=== PATIENT | male | born 1975 | race Caucasian/White ===

== ENCOUNTER 2024-05-21 08:32 | Outpatient (CLI) | payer OTHER, SELFPAY | END 2024-05-21 08:33 | disposition home or self-care (01) | LOC: FRMREF 08:33 | PROVIDERS: Visit Provider Nurse Practitioner Family | DX: M10.9 Gout, unspecified (principal) | CPT/HCPCS: 84550 ==

== ENCOUNTER 2024-05-23 09:43 | Emergency (ER) | payer OTHER, SELFPAY ==
--- OUTSIDE RECORDS SUMMARY | 2024-05-23 09:44 | XMS_ITS | Clinical Summary ---
Author Organization [facility] Address [address] [place] [id number] Care Team Providers Care Concrete Mixing Plant Laborer Name Role Phone [facility], [facility] Primary Care Provider Allergies No known active allergies Medications predniSONE (DELTASONE) 20 MG tablet Take two tablets (= 40mg) each day for 5 (five) days 10 tablet 06/04/2020 Active oxyCODONE (ROXICODONE) 5 MG tablet Take 1 tablet (5 mg) by mouth every 6 hours as needed for pain 12 tablet 06/04/2020 Active Social History Tobacco Use Types Packs/Day Years Used Date Smoking Tobacco: Never Assessed Adolescent Education Answer Date Record ed Getting School Help Needed Not on file 01/21 Sex and Gender Information Value Date Recorded Sex Assigned at Not on file Legal Sex Male 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 Gender Identity Not on file Sexual Orientation Not on file Last Filed Vital Signs Vital Sign Reading Time Taken Comments Blood Pressure 155/103 06/04/2020 5:45 PM CHANGE MANAGEMENT FACILITATOR Pulse 81 06/04/2020 6:15 PM CHANGE MANAGEMENT FACILITATOR Temperature 37.4 C (99.4 F) 06/04/2020 4:00 PM CHANGE MANAGEMENT FACILITATOR Respiratory Rate 20 06/04/2020 4:00 PM CHANGE MANAGEMENT FACILITATOR Oxygen Saturation 99% 06/04/2020 6:30 PM CHANGE MANAGEMENT FACILITATOR Inhaled Oxygen Concentration - - Weight 79.4 kg (175 lb) 06/04/2020 4:00 PM CHANGE MANAGEMENT FACILITATOR Height 185.4 cm (6' 1) 06/04/2020 4:00 PM CHANGE MANAGEMENT FACILITATOR Body Mass Index 23.09 06/04/2020 4:00 PM CHANGE MANAGEMENT FACILITATOR Plan of Treatment Not on file Insurance [facility] Care Teams Concrete Mixing Plant Laborer Relationship Specialty Start Date End Date Clinic, [address] [phone] PCP - General 06/04/20
--- OUTSIDE RECORDS SUMMARY | 2024-05-23 09:44 | XMS_ITS | Clinical Summary ---
Author Organization [facility] Address [place], [place] [address] Care Team Providers Care Patent Chemist Name Role Phone Pcp, No Primary Care Provider Unavailabl e Allergies No known active allergies Medications No known medications Active Problems No known active problems Resolved Problems Problem Noted Date Diagnosed Date Resolved Date FOREIGN BODY IN CONJUNCTIVAL SAC-OS 09/26/2001 02/01/2024 EYE EXAMINAITION 04/19/1999 02/01/2024 Social History Tobacco Use Types Packs/Day Years Used Date Smoking Tobacco: Some Days Cigarettes 0.1 21.1 Started: 04/16/2003 Tobacco Cessation:Ready to Q uit: Not Asked; Counseling Given: Not Answered Comments:occasional tobacco use Sex and Gender Information Value Date Recorded Sex Assigned at Not on file 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 Gender Identity Not on file Sexual Orientation Not on file Obstetrics History Last Filed Vital Signs Vital Sign Reading Time Taken Comments Blood Pressure 122/86 02/01/2024 4:11 PM CDT Pulse 76 02/01/2024 4:11 PM CDT Temperature 36.9 C (98.4 F) 02/01/2024 4:11 PM CDT Respiratory Rate - - Oxygen Saturation 97% 02/01/2024 4:1 1 PM CDT Inhaled Oxygen Concentration - - Weight 86.1 kg (189 lb 14.4 oz) 02/01/2024 4:11 PM CDT Height 182.9 cm (6') 02/01/2024 4:11 PM CDT patient reported Body Mass Index 25.76 02/01/2024 4:11 PM CDT Plan of Treatment Health Maintenance Due Date Last Done Comments Tdap 1988 Depression screening for age 12+ 1989 HIV for age 15-65 1992 Hepatitis C screening for age 18-79 1995 Pneumococcal series for age 6-49 (1 of 2 - PCV) 1995 Tetanus booster 1997 Colonoscopy through age 75 2022 Lipids for age 45-75 2022 COVID-19 vaccine series (1 - 2023- season) Influenza for age 9-49 12/16/2023 BMI (ht and wt on same day) for age 18+ 01/31/2025 1 Insurance [facility] Care Teams Patent Chemist Relationship Specialty Start Date End Date Pcp, No . PCP - General 02/01/24
[2024-05-23 10:13] VITALS: BP 128/89; PULSE 78; RESP 20; TEMP 36.8; O2SAT 97; BMI 22.4
--- OUTSIDE RECORDS SUMMARY | 2024-05-23 10:36 | XMS_ITS | Clinical Summary ---
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 PCP - General 02/01/24
--- OUTSIDE RECORDS SUMMARY | 2024-05-23 10:36 | XMS_ITS | Clinical Summary ---
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 Gender Identity Not on file Sexual Orientation Not on file Last Filed Vital Signs Vital Sign Reading Time Taken Comments Blood Pressure 155/103 06/04/2020 5:45 PM DETECTIVE HOMICIDE SQUAD Pulse 81 06/04/2020 6:15 PM DETECTIVE HOMICIDE SQUAD Temperature 37.4 C (99.4 F) 06/04/2020 4:00 PM DETECTIVE HOMICIDE SQUAD Respiratory Rate 20 06/04/2020 4:00 PM DETECTIVE HOMICIDE SQUAD Oxygen Saturation 99% 06/04/2020 6:30 PM DETECTIVE HOMICIDE SQUAD Inhaled Oxygen Concentration - - Weight 79.4 kg (175 lb) 06/04/2020 4:00 PM DETECTIVE HOMICIDE SQUAD Height 185.4 cm (6' 1) 06/04/2020 4:00 PM DETECTIVE HOMICIDE SQUAD Body Mass Index 23.09 06/04/2020 4:00 PM DETECTIVE HOMICIDE SQUAD Plan of Treatment Not on file Insurance [facility] Care Teams Insurance Underwriting Assistant Relationship Specialty Start Date End Date Clinic, [address] [phone] PCP - General 06/04/20
--- NOTE | 2024-05-23 10:53 | ED.GENADULT ---
HPI - General Adult General Chief complaint: Skin/Abscess/Foreign Body Stated complaint: Infected Toe Time Seen by Provider: 05/23/24 10:25 Source: patient Mode of arrival: ambulatory Limitations: no limitations History of Present Illness HPI narrative: Patient is a 49 year male presenting today with right-sided 5th toe pain that started approximately 3 days ago. Patient was seen on Sunday in the urgent care diagnosed with gout. He was started on prednisone and the pain got worse. Yesterday he was seen again and was given Keflex to take b.i.d.. The pain states that since yesterday the the pain has been unbearable, kept him up all night. Describes it as throbbing. Denies any systemic symptoms. Denies any trauma to the foot. Related Data Previous Rx's ?Medication ?Instructions ?Recorded prednisone 20 mg tablet 40 mg (2 x 20 mg) PO QDAY 5 days 05/21/24 #10 tabs silver sulfadiazine 1 % topical 1 applic topical BID 5 days #20 05/21/24 cream (Silvadene) grams cephalexin 500 mg capsule 500 mg PO BID 5 days #10 caps 05/22/24 cephalexin 500 mg capsule 500 mg PO QID 5 days #20 caps 05/23/24 Allergies Allergy/AdvReac Type Severity Reaction Status Date / Time No Known Allergies Allergy Unknown Verified 05/23/24 10:12 Review of Systems Status of ROS: Reports: 10 or more systems reviewed and unremarkable except as noted in History and below [facility] Social History Smoking Status: Current every day smoker What tobacco products do you use: cigarettes Do you use any of these nicotine containing products: None Second hand tobacco smoke exposure: No How often do you have a drink containing alcohol: 2-3 times a week How many standard drinks containing alcohol do you have on a typical day: 5 or 6 How often do you have six or more drinks on one occasion: Less than monthly AUDIT-C Alcohol total score: 6 Non-prescribed substance use: marijuana (any form) service: No Exam Narrative: Exam Narrative: Well-nourished well-developed patient in mild distress. Alert and oriented. Answers questions appropriately. Mood and affect are appropriate. Thoughts are goal oriented and rational. No tangential or magical thinking noted. Patient speaks in full sentences without needing to catch his breath. HEENT: Normocephalic atraumatic. Extraocular muscles are intact. Conjunctivae are moist without any icterus noted. Moist mucous membranes. Extremities: Bilateral lower extremities are without edema. Normal DP and PT pulses. Fifth digit on the right foot and abscess at the tip of the toe, erythema of the toe and fluctuance at the tip of the toe. Skin: Well perfused. Const: Vital Signs, click to edit/add: Vital Signs - 24 hr 05/23/24 10:13 Temperature 98.3 F Pulse Rate [Pulse Oximeter] 78 Respiratory Rate 20 Blood Pressure [Ri ght Upper Arm] 128/89 Pulse Oximetry 97 Oxygen Delivery Me thod Room Air Course Course ED Course: The toe and the upper foot were cleaned, a digital block was done with lidocaine and an 11 blade was used to excise a small elliptical skin piece from the tip of the toe. Approximately 0.5 mL of johan pus was expelled. The inside of the wound was explored with a Q-tip and debrided. Wound does not extend to the bone. Vital Signs Vital signs: Initial Vital Signs Temperature 98.3 F 05/23/24 10:13 Temperature Source Temporal Artery Scan 05/23/24 10:13 Pulse Rate 78 05/23/24 10:13 Pulse Rhythm Regular 05/23/24 10:13 Respiratory Rate 20 05/23/24 10:13 Blood Pressure 128/89 05/23/24 10:13 Blood Pressure Mean 102 05/23/24 10:13 Blood Pressure Position Semi-Fowlers 05/23/24 10:13 Pulse Oximetry 97 05/23/24 10:13 Oxygen Delivery Method Room Air 05/23/24 10:13 Vital Signs Temperature 98.3 F 05/23/24 10:13 Pulse Rate 78 05/23/24 10:13 Respiratory Rate 20 05/23/24 10:13 Blood Pressure 128/89 05/23/24 10:13 Pulse Oximetry 97 05/23/24 10:13 Oxygen Delivery Method Room Air 05/23/24 10:13 Temperature 98.3 F 05/23/24 10:13 Pulse Rate 78 05/23/24 10:13 Respiratory Rate 20 05/23/24 10:13 Blood Pressure 128/89 05/23/24 10:13 Pulse Oximetry 97 05/23/24 10:13 Oxygen Delivery Method Room Air 05/23/24 10:13 Medical Decision Making MDM Narrative Medical decision making narrative: Felon of the 5th digit on the right foot. Increase Keflex to 500 mg p.o. q.i.d.. Stop prednisone and silver sulfadiazine. Follow-up with PCP in approximately 1 week. Discharge Plan Discharge Clinical Impression: Felon, Cellulitis, Abscess of skin or subcutaneous tissue Patient Disposition: Home, Self-Care Condition: Stable Instructions: Abscess Incision and Drainage (DC) Additional Instructions: Toe will continue to drain for a couple of days. Okay to use ibuprofen or ice as needed for pain control. Elevate as much as possible. Avoid friction such as prolonged walking or running. Follow-up with your primary care provider in approximately 1 week. You should increase your antibiotic to 4 times daily. You should take antibiotics for total of 7 days. A new prescription for an additional 5 days has been sent to your pharmacy. Prescriptions: New cephalexin 500 mg capsule 500 mg PO QID 5 Days Qty: 20 0RF No Action prednisone 20 mg tablet 40 mg PO QDAY 5 Days Qty: 10 0RF silver sulfadiazine [Silvadene] 1 % cream 1 applic topical BID 5 Days Qty: 20 0RF Rx Instructions: apply a 1.5 mm thickness cephalexin 500 mg capsule 500 mg PO BID 5 Days Qty: 10 0RF Follow Up/Referrals: Provider,Not a Local [Primary Care Provider] - Stand Alone [facility]: [facility] Inst[facility]
== END 2024-05-23 11:16 | disposition home or self-care (01) ==
PROVIDERS: Emergency Provider Family Medicine
DX: L02.611 Cutaneous abscess of right foot (principal)
CPT/HCPCS: 10060; 99283; 99284